=== PATIENT | male | born 1970 ===

== ENCOUNTER 2016-10-21 21:49 | Emergency (ER) | payer OTHER ==
[2016-10-21 23:26] VITALS: BP 125/87; PULSE 78; RESP 18; TEMP 98.7; O2SAT 97; BMI 26.2
[2016-10-22] MEDS ORDERED: Morphine 2 mg/ml ISec ONE (01:11)
--- NOTE | 2016-10-23 14:44 | US ---
PROCEDURE: Left lower extremity venous US HISTORY: Leg pain and swelling. Evaluate for DVT. PHYSICIAN(S): Parag Solis MD. TECHNIQUE: Duplex sonography and color-flow Doppler with graded compression were used to evaluate the deep venous system of the left lower extremity. FINDINGS: The visualized deep venous system of the left lower extremity is sonographically normal and compressible. Normal wave forms and augmentation are seen. There is no sonographic evidence for deep venous thrombosis in the visualized segments of the left lower extremity. IMPRESSION: 1. No sonographic evidence for deep venous thrombosis in the visualized segments of the left lower extremity.
== END 2016-10-22 22:39 | disposition home or self-care (01) ==
LOC: ED 21:49
DX: M54.30 Sciatica, unspecified side (principal)